=== PATIENT | female | born 1960 | race Asian ===

== ENCOUNTER → 2021-06-10 11:01 | Outpatient (CLI) | payer OTHER, MEDICAID, SELFPAY ==
--- NOTE | 2021-06-10 | DI.MRI.S_ITS ---
PROCEDURE: MR KNEE RT WO CON INDICATIONS: Effusion, right knee TECHNIQUE: Noncontrast sagittal PD fast spin echo and T2 fast spin echo with fat saturation, sagittal 3-D FLASH with fat saturation; coronal T1 spin echo and PD fast spin echo with fat saturation, and axial PD fast spin echo with fat saturation through the knee. COMPARISON: None. FINDINGS: Menisci: Medial meniscus: Macerated ill-defined tear involving the posterior horn and body of the medial meniscus. There is partial extrusion. Lateral meniscus: Intact. Cruciate ligaments: Anterior cruciate ligament: Intact. Posterior cruciate ligament: Intact. Medial structures: The medial collateral ligament: There is medial bowing of the medial collateral ligament, with mild internal signal changes and no complete rupture. There is adjacent soft tissue edema. The appearance could reflect reactive changes to medial compartment pathology, versus low-grade sprain of the MCL. Semimembranosus tendon: Thickening and T2 hyperintense signal changes in keeping with insertional tendinopathy. Visualized pes anserinus tendons: Intact. Bursal fluid: Moderate pes anserinus bursitis/tenosynovitis Lateral structures: The lateral collateral ligament intact. Biceps femoris tendon appears intact. Popliteus tendon grossly unremarkable. Iliotibial band appears intact. Anterior structures: Quadriceps tendon: Intact. Medial patellofemoral ligament: Intact. Lateral patellofemoral ligament: Intact. Patellar tendon: Mild tendinopathy. Anterior soft tissues: Prepatellar and superficial infrapatellar subcutaneous edema/fluid. Deep infrapatellar region: Normal. Bones and cartilage: Marrow: No focal marrow contusion or discrete low signal fracture line. Medial compartment: Diffuse partial-thickness loss and surface fraying of the femoral articular cartilage. Lateral compartment: No focal chondral defect. Patellofemoral compartment: Near full-thickness fissuring of the cartilage overlying the medial patellar ridge. Joint space: Effusion: Moderate to large joint effusion Popliteal fossa: No Ortiz's cyst. Loose bodies: None. IMPRESSION: Medial meniscal tear involving the posterior horn and body with partial extrusion. Adjacent MCL changes as above. Insertional semimembranosus tendinopathy/partial tear. Moderate pes anserinus bursitis/tenosynovitis. Mild joint degeneration as above. Moderate to large joint effusion Dictated by: Amaury Schultz M.D. on 06/10/2021 at 12:47 Approved by: Amaury Schultz M.D. on 06/10/2021 at 12:56
== END ==
PROVIDERS: PCP Family Medicine; Referring Provider Family Medicine; Visit Provider Family Medicine
DX: S83.241A Other tear of medial meniscus, current injury, right knee, initial encounter (principal); M25.461 Effusion, right knee
CPT/HCPCS: 73721

== ENCOUNTER 2024-08-26 11:57 | Day surgery (SDC) | payer BC, SELFPAY ==
[2024-08-26 12:46] VITALS: BP 121/79; PULSE 85; RESP 11; TEMP 36.1; O2SAT 96
[2024-08-26] MEDS: SODIUM CHLORIDE 0.9% 1,000 ML 84 ML IV (13:15)
--- NOTE | 2024-08-26 13:50 | P.HP_ITS ---
History of Present Illness History of Present Illness Date Patient Seen: 08/26/24 Time Patient Seen: 13:51 Chief complaint: Colonoscopy Narrative: 64-year-old female presents for what might be her initial colonoscopy, she can not recall ever having 1 before. No family history of colon cancer Crohn's disease. [facility] Medical History (Updated 08/26/24 @ 13:51 by Wesley Ricks MD) Colon cancer screening (08/26/24) Brain aneurysm Social History Smoking Status: Never smoker alcohol intake: current Meds Home Medications and Allergies Home Medications Medication Instructions Recorded Confirmed Type sodium,potassium,mag sulfates 17.5 See Rx Instructions PO .COMPLEX 07/21/24 Rx gram-3.13 gram-1.6 gram oral soln #354 mL (Suprep Bowel Prep Kit) amlodipine 10 mg tablet 10 mg PO DAILY 08/26/24 History mirtazapine 15 mg tablet 7.5 mg DAILY 08/26/24 08/26/24 History rosuvastatin 5 mg tablet mg DAILY 08/26/24 History venlafaxine 150 mg 150 mg PO DAILY 08/26/24 08/26/24 History capsule,extended release 24 hr Allergies Allergy/AdvReac Type Severity Reaction Status Date / Time Sulfa (Sulfonamide Allergy Rash Verified 08/26/24 12:41 Antibiotics) Review of Systems Review of Systems ROS: Yes All systems reviewed with the patient and are negative except as otherwise documented Exam Vital Signs (past 8 hours): - 08/26/24 12:46 Temperature 97.0 F L Pulse Rate 85 Respiratory Rate 11 L Blood Pressure 121/79 Pulse Oximetry 96 Oxygen Delivery Method Room Air Oxygen Delivery Method Room Air Narrative Exam Narrative: Gen: NAD, sitting comfortably in bed, appears well HEENT: Sclera are anicteric, head is normocephalic and atraumatic, trachea is midline. CV: RRR, no JVD Resp: clear to auscultation bilaterally, equal chest wall movement bilaterally Abd: soft, nontender, normoactive bowel sounds Ext: no edema, full range of motion Neuro: Cranial nerves II-XII grossly intact, no focal deficits Skin: No erythema or ecchymosis Assessment & Plan Assessment and plan (1) Colon cancer screening: Status: Acute Assessment & Plan narrative: Patient presents for colonoscopy Risks, benefits, alternatives to colonoscopy explained, including but not limited to bowel perforation or other serious complication requiring surgery at less than 1 in 5000 colonoscopies, abdominal pain, cramping or bleeding and less than 1% of colonoscopies, and the chances that we find a diagnosis that would require further intervention of about 2%. Patient agrees to proceed. Time-Based Coding :: [TOTAL MINUTES] spent with patient and on the chart (including review of chart, obtaining history, exam, reviewing outside data, placing orders, documenting exam and treatment plan, and counseling patient) on [DATE]. [employer] Document charge(s): No
--- NOTE | 2024-08-26 14:13 | P.OP.COLON_ITS ---
Operative Date/Time/Diagnoses Date of procedure: 08/26/24 Time of procedure: 14:14 Pre-op diagnosis: Colon screening Post-op diagnosis: same Procedure & Clinicians Study performed: Colonoscopy Same procedure as scheduled: Yes Indications: Colon screening Surgeon: Wesley Ricks Procedure Notes SCOAP/Timeout: Performed Procedure in detail: Time-out was performed. Mac was induced. Patient was placed in left lateral d ecubitus position. The perineum was inspected without any gross abnormality. Lubricated pediatric colonoscope was inserted and advanced to the cecum. The terminal ileum was intubated. The colonoscope was withdrawn slowly inspecting the circumference of the colon. Very small polyps may have been missed, prep quality was adequate. Retroflexed view of the rectum showed small, non prolapsed nonbleeding internal hemorrhoids. The scope was withdrawn the patient was taken to PACU in good condition. Scope withdrawal time: 6 Sedation minutes: 8 Specimen(s): none sent Complications: none Post-procedure Recommendations: Colonoscopy in 10 years Disposition: PACU
[2024-08-26 14:14] VITALS: BP 91/62; PULSE 81; RESP 13; TEMP 36.2; O2SAT 94
[2024-08-26 14:19] VITALS: BP 98/62; PULSE 80; RESP 14; O2SAT 98
[2024-08-26 14:24] VITALS: BP 105/72; PULSE 77; RESP 13; TEMP 36.3; O2SAT 98
[2024-08-26 14:29] VITALS: BP 113/70; PULSE 91; RESP 12
[2024-08-26 14:33] VITALS: BP 108/79; PULSE 79; RESP 14; TEMP 36.3; O2SAT 97
== END 2024-08-26 14:44 | disposition home or self-care (01) ==
PROVIDERS: PCP Family Medicine; Referring Provider Surgery; Visit Provider Surgery
PROC: 0DJD8ZZ Inspection of Lower Intestinal Tract, Via Natural or Artificial Opening Endoscopic (ICD-10-PCS; CPT 45378; principal; 2024-08-26 13:15)
DX: Z12.11 Encounter for screening for malignant neoplasm of colon (principal); K64.8 Other hemorrhoids
CPT/HCPCS: 45378; J2704